=== PATIENT | female | born 1970 | race Caucasian/White ===

== ENCOUNTER 2018-12-09 03:09 | Observation (INO) ==
[2018-12-09] MEDS ORDERED: OXYCODONE Oral CONC 10 MG/0.5 ML ORAL.SYG SL PRN (05:55)
[2018-12-09] MEDS ORDERED: Naloxone 0.4 MG/ML INJ IVP PRN (05:55)
[2018-12-09] MEDS ORDERED: 0.9 % Sodium Chloride 1,000 ML IVC SCH (06:00)
--- NOTE | 2018-12-09 06:00 | Internal Med History&Physical ---
Date of Encounter: 12/09/18 Time of Encounter: 05:40 Internal Medicine - H&P: HPI Chief complaint: Bilateral calcaneal fractures Admitted From: Hospital to Hospital Transfer Plans for Post Hospital Care: Home History of present illness: Ms. Waldron is a 48 year old female Patient presented to the [place] emergency room after falling into her empty indoor inground pool. She states that she went to her pool room looking for her 's leaf blower. The lights were off and upon turning around to leave the room she ended up falling feet first into her pool landing on her heels then falling backwards onto her buttocks. The fall is about 6 feet. She denies hitting her head or losing consciousness. EMS was called and was able to get her out of the pool and transfer her to the emergency room for further evaluation. At the [place] emergency room patient's initial vital signs were within normal limits. CBC, BMP and INR all within normal limits. Imaging: Left and right ankle x-rays: Acute traumatic comminuted mildly displaced fracture of both calcanei Cervical, thoracic, lumbar CT: No acute abnormality Right ankle CT: Highly comminuted calcaneal fracture, intra-articular involving the anterior three fourths of the bone. Fracture plane extends into the sustentaculum. Emergency department gave the patient IV morphine as well as fentanyl, and discussed the case with on-call staffing consultant Dr. Duron. He initially recommended patient be discharged home with a wheelchair and complete non-weightbearing instructions however patient's pain and safety concerns led to a transfer to [facility] for podiatry consultation. Dr. Duron had discussed this outcome with the ER. Upon my evaluation, patient is resting in the hospital bed in mild distress secondary to pain. Her legs are elevated on pillows and bilateral splints have been applied to her feet. She denies chest pain, abdominal pain, nausea, vomiting, diarrhea and constipation. She is a full code. She does not take any medications, denies significant medical history. She has had torn tendons in her right foot requiring surgical correction. Past Med Surg Social Fam HX - Past Medical History Medical history: no medical history Psychiatric history: no psych history - Past Surgical History Surgical History: other (Gastric bypass) Additional surgical history: gastric bypass, right ankle surgery - Social History Smoking Status: Former smoker Smokeless Tobacco Status: No Alcohol use: none Drug use: none - Family History Mother History Unknown: Yes Living Status: Cause of : Kidney failure Hx Family Genitourinary Disorders: Yes (Kidney failure, dialysis patient) Hx Family Endocrine Disorder: Yes (Diabetic) Internal Medicine - H&P: Meds Allergy/AdvReac Type Severity Reaction Status Date / Time Sulfa (Sulfonamide Allergy See Verified 10/07/16 19:54 Antibiotics) Comments All Systems PM: A 10-system review of systems was performed and is negative for pertinent findings except as documented above in the HPI. - Constitutional Vitals: Temp Pulse Resp BP Pulse Ox 99.4 F 66 17 140/77 97 12/09/18 05:15 12/09/18 05:15 12/09/18 05:15 12/09/18 05:15 12/09/18 05:15 General appearance: Present: cooperative, mild distress, A&O X 3, pleasant, answers questions appropriately Exam: - - Head Head exam: Present: normal inspection - Eye Eye exam: Present: EOMI, normal appearance - Respiratory Respiratory exam: Present: CTAB. Absent: rales, respiratory distress, rhonchi, wheezes - Cardiovascular Cardiovascular exam: Present: RRR. Absent: diastolic murmur, systolic murmur - GI/Abdominal GI/Abdominal exam: Present: normal bowel sounds, soft. Absent: tenderness - Extremities Exam Extremities exam: Present: tenderness, warm, radial pulses palpable and symmetrical Additional comments: Bilateral lower extremities in splint dressing, toes warm to touch. - Neurological Exam Neurological exam: Present: no focal deficits, strengths equal and symetr throughout. Absent: motor sensory deficit, facial droop, speech deficit Additional comments: lower extremities difficult to assess due to splints applied to both feet - Skin Skin exam: Present: dry, normal color, warm - Assessment and Plan (1) Bilateral calcaneal fractures Current Visit: No Status: Acute Assessment and plan: Patient sustained bilateral calcaneal fractures after falling into her inground empty pool. Dr. Duron of podiatry notified and will see the patient. Nothing by mouth Pain management as necessary Follow-up podiatry recommendations Qualifiers: Encounter type: initial encounter Fracture type: closed Qualified Code(s): S92.001A - Unspecified fracture of right calcaneus, initial encounter for closed fracture; S92.002A - Unspecified fracture of left calcaneus, initial encounter for closed fracture (2) Low back pain Current Visit: No Status: Acute Assessment and plan: CT of spine negative for abnormalities. Pain management as needed Qualifiers: Chronicity: acute Back pain laterality: bilateral Sciatica presence: without sciatica Qualified Code(s): M54.5 - Low back pain (3) DVT prophylaxis Current Visit: Yes Status: Acute Assessment and plan: SCDs - Time Spent With Patient Total time spent is greater than 50% in coordination of care (as documented) at patient's floor/unit and/or counseling patient: Greater than 35 minutes
[2018-12-09] MEDS: OXYCODONE Oral CONC 10 MG/0.5 ML ORAL.SYG SL PRN ×5 (06:43→23:11)
--- NOTE | 2018-12-09 09:56 | Event Note ---
Date of Encounter: 12/09/18 Time of Encounter: 09:00 went to see patient and she was being wheeled down the hallway for a chest xray. patient will require surgery on the right calcaneal fracture likely tomorrow. Needs to be NPO after midnight.
--- NOTE | 2018-12-09 09:59 | Podiatry Consult Note ---
Date of Encounter: 12/10/18 Time of Encounter: 09:00 Assessment and Plan (1) Closed right calcaneal fracture Current visit: Yes Status: Acute I had a thorough review with the patient regarding her condition/injury, my findings, and recommendations for treatment. We discussed her injury and that her heel bone which she broken fractured into the joint will have arthritis and never be the same as it was prior to the injury with or without surgery. We discussed the CT scan and x-rays which were done. The right side appears worse than the left with loss of calcaneal posterior tuberosity height an intra- articular fracture and is going to be brought to the operating room for surgical intervention after discussing the nature of the procedure, risks versus benefits potential complications consequences of surgery and her condition at length including but not limited to infection bleeding swelling numbness tingling nerve damage wound healing problems painful scar delayed or nonhealing of bone fracture heart attack blood clot pulmonary embolism and loss of leg or partial foot pneumonia arthritis reaction to implants need for implant removal loss of functionality lack of procedure to produce desired outcome walking with a limp need for further surgery etc. Patient was informed that at some point and I cannot predict when but she will need future surgery on the joint which she fractured into and has arthritis of. No guarantees made as to the outcome of any procedure or her future functionality. All of her questions have been answered and the informed consent was signed. Ice and elevation. We discussed the typical course of recovery and she will be nonweightbearing and have to be in a wheelchair due to the calcaneal fractures on both sides. client services administrator should look into rehabilitation facility. She will need to be on DVT prophylaxis following the surgery and while she remains nonweightbearing. Scheduled in OR. Qualifiers: Encounter type: initial encounter Calcaneus location: body Fracture alignment: displaced Qualified Code(s): S92.011A - Displaced fracture of body of right calcaneus, initial encounter for closed fracture History of Present Illness HPI: Ms. Waldron is a 48 year old female who presented to the [facility] emergency room after falling into her empty inground pool. She states that she went to her pool room looking for her 's leaf blower. The lights were off and upon turning around to leave the room she ended up falling feet first into her pool landing on her heels then falling backwards. The fall is about 6 feet. She denies hitting her head or losing consciousness. EMS was called and was able to get her out of the pool and transfer her to the emergency room for further evaluation. Past Med Surg Social Fam HX - Past Medical History Medical history: no medical history Psychiatric history: no psych history - Past Surgical History Surgical History: other (Gastric bypass) Additional surgical history: gastric bypass, right ankle surgery - Social History Smoking Status: Former smoker Smokeless Tobacco Status: No Alcohol use: none Drug use: none - Family History Mother History Unknown: Yes Living Status: Cause of : Kidney failure Hx Family Genitourinary Disorders: Yes (Kidney failure, dialysis patient) Hx Family Endocrine Disorder: Yes (Diabetic) Medications and Allergies RX: No Known Home Drugs 12/09/18 [History] Allergy/AdvReac Type Severity Reaction Status Date / Time Sulfa (Sulfonamide Allergy See Verified 12/09/18 16:52 Antibiotics) Comments All Systems Reviewed: The remainder of the systems were reviewed and are negative Physical Exam - Constitutional Vitals: Temp Pulse Resp BP Pulse Ox 99.3 F 61 17 120/72 95 12/09/18 07:40 12/09/18 07:40 12/09/18 07:40 12/09/18 07:40 12/09/18 07:40 General appearance: no acute distress - Ankle & Foot Exam: Well-developed and nourished female in no acute distress Pain with palpation bilateral calcaneus. Unable to perform further examination due to pain. Patient does have some ecchymosis. No fracture blisters. Skin lines are evident. Sensation intact to touch her toes. Patient can flex and extend digits of bilateral feet. Results - Labs Result Diagrams: 12/10/18 01:26 12/10/18 01:26 Labs: All other labs normal. Consult Discharge Plan - Plan Referrals: Sho Phillips, PLANOGRAMMER [Primary Care Provider] -
[2018-12-09] MEDS: Ondansetron 4 MG/2 ML VIAL IVP PRN ×2 (10:20→18:50)
[2018-12-09] MEDS: 0.9 % Sodium Chloride 1,000 ML IVC SCH ×2 (10:21→18:54)
[2018-12-09 15:55] LABS: Bilirubin,Urine Negative (Negative); Blood,Urine Moderate (Negative); Clarity,Urine Clear (Clear); Color,Urine Yellow (Yellow); Glucose,Urine (UA) Normal (Normal); Ketones,Urine Negative (Negative); Leukocyte Esterase,Urine Moderate (Negative); Nitrite,Urine Positive (Negative); Protein,Urine Negative (Neg-Trace); Specific Gravity,Urine >= 1.030 (1.010-1.025); Urobilinogen,Urine Normal (Normal)
[2018-12-09 16:14] LABS: Bacteria,Urine Many per hpf (None-Few); Hyaline Casts,Urine Few per lpf (None-Few); Squamous Epithelial Cell,Urine Many per lpf (None-Few); WBC,Urine TNTC per hpf (0-3)
--- NOTE | 2018-12-09 16:20 | Event Note ---
Date of Encounter: 12/09/18 Time of Encounter: 14:16 Patient was seen and examined. Reviewed the note. Patient is is nothing by mouth for possible fracture repair today. Orthopedic surgeon on board. Continue pain management. DVT prophylaxis with subcutaneous heparin. Preop lab and chest x-ray ordered. Will consult PT OT and social welfare clerk.
[2018-12-09] MEDS: *HR* Heparin 5,000 UNIT/ML VIAL SQ SCH (23:11)
[2018-12-10] MEDS: Ondansetron 4 MG/2 ML VIAL IVP PRN (00:36)
[2018-12-10 01:55] LABS: Basophils % 0.3 %; Eosinophils # 0.1 K/mcL (0.0-0.6); Eosinophils % 1.7 %; Hematocrit 33.5 % (35.3-44.9); Hemoglobin 10.5 g/dL (11.5-15.4); Immature Granulocytes % 0.1 % (0-4); Lymphocytes # 1.2 K/mcL (0.6-4.6); Lymphocytes % 17.8 %; Mean Corpuscular HGB Conc 31.3 g/dL (31.6-35.5); Mean Corpuscular Hemoglobin 26.9 pg (28.0-33.3); Mean Corpuscular Volume 85.9 fL (83.0-100.0); Mean Platelet Volume 11.4 fL (9.4-12.4); Monocytes # 0.7 K/mcL (0.0-1.3); Monocytes % 10.2 %; Neutrophils # 4.8 K/mcL (1.6-8.9); Platelet Count 157 K/mcL (140-400); Red Cell Distribution Width 13.1 % (11.5-14.5); Segmented Neutrophils % 69.9 %; White Blood Count 6.9 K/mcL (4.3-11.1)
[2018-12-10 02:14] LABS: Blood Urea Nitrogen 10 mg/dL (6-20); Calcium 8.6 mg/dL (8.6-10.3); Carbon Dioxide 26 mEq/L (23-29); Chloride 106 mEq/L (98-107); Glucose 111 mg/dL (70-105); Osmolality,Calculated 288 (280-300); Sodium 139 mEq/L (136-145)
[2018-12-10 02:17] LABS: BUN/Creatinine Ratio 14 (6-26); eGFR For African Americans > 60 (> 60); eGFR For Non-African Americans > 60 (> 60)
[2018-12-10] MEDS: OXYCODONE Oral CONC 10 MG/0.5 ML ORAL.SYG SL PRN ×3 (05:56→21:32)
[2018-12-10] MEDS: *HR* Heparin 5,000 UNIT/ML VIAL SQ SCH ×3 (06:32→21:31)
--- NOTE | 2018-12-10 07:09 | Electrocardiograph Report ---
[place] [facility] Test Date: 2018-12-09 Pat Name: Tiarra Waldron Department: [id number] Room: [facility] Gender: F Adapted Physical Education Aide: : 1970 Requested By: Teddy Cheng Order Number: [id number] Reading MD: Alberto Houser Measurements Intervals [place] Rate: 61 P: 47 MT: 129 QRS: 19 QRSD: 95 T: 19 QT: 429 QTc: 433 Interpretive Statements sinus rhythm TU waves Electronically Signed On 12-10-2018 7:08:13 EDT by Alberto Houser
[2018-12-10] MEDS ORDERED: *HR* Promethazine 25 MG/ML VIAL IVP PRN (09:11)
[2018-12-10] MEDS ORDERED: 0.9 % Sodium Chloride 1,000 ML IVC SCH (09:15)
[2018-12-10] MEDS ORDERED: Pantoprazole 40 MG VIAL IVP SCH (09:15)
[2018-12-10] MEDS ORDERED: *HR* Midazolam HCl 2 MG/2 ML VIAL ONE (10:08)
[2018-12-10] MEDS ORDERED: *HR* Propofol 200 MG/20 ML VIAL IVP ONE (10:08)
[2018-12-10] MEDS ORDERED: *HR* FentaNYL (PF) 100 MCG/2 ML VIAL ONE (10:08)
[2018-12-10] MEDS ORDERED: Dexamethasone 4 MG/ML VIAL ONE (10:09)
[2018-12-10] MEDS ORDERED: Lidocaine -MPF 2% 2 ML VIAL ONE ×2 (10:09→14:28)
[2018-12-10] MEDS ORDERED: Ondansetron 4 MG/2 ML VIAL ONE (10:09)
--- NOTE | 2018-12-10 11:19 | Anesthesia Evaluation PreOp ---
Date of Encounter: 12/10/18 Time of Encounter: 11:16 - Past History Planned Operation: ORIF right calcaneal fx Cardiac History: Denies any Significant Hx Pulmonary History: Denies Any Significant HX, Former smoker TAIL END RIDER History: Denies Any Significant HX Other Medical History: Denies Any Significant HX Anesthesia History: No Prior Anesthetic Complications, Past Anesthesia (gastric bypass, right ankle, christy) Alcohol Use: none Drug use: none Medications and Allergies No Known Home Drugs 12/09/18 [History] Allergy/AdvReac Type Severity Reaction Status Date / Time Sulfa (Sulfonamide Allergy See Verified 12/09/18 16:52 Antibiotics) Comments - Meds/Allergy Pre-op Review Medications Reviewed: Yes Allergies Reviewed: Yes Beta Blockers on Current Med List: No Anesthesia Results - Labs 12/10/18 01:26 12/10/18 01:26 - Imaging EKG: report reviewed (sinus rhythm TU waves) Anesthesia Exam Selected Entries 12/10/18 07:30 Temperature 98.6 F Pulse Rate 72 Respiratory Rate 18 Blood Pressure 129/78 O2 Sat by Pulse Oximetry 93 Oxygen Delivery Method Room Air Weight: 93kg NPO (# of Hours): 8 - HEENT Pupil (Motor): EOMI Mallampati: III Teeth: Missing, Poor dentition Oral Opening: Less than or equal to 3 - TAIL END RIDER LOC: Oriented TAIL END RIDER Motor: Normal RUE, Normal LUE, Normal RLE, Normal LLE, Normal Face TAIL END RIDER Sensory: Normal: RUE, LUE, RLE, LLE, Face - Cardiac Rhythm: Regular Murmur: None - Pulmonary Breath Sounds: bilateral Clear Respiratory Effort: Symmetrical Anesthesia Assess/Plan ASA Score: 2 Level of consciousness: Cooperative, Oriented Anesthetic Plan: General, Regional Nerve Block Monitoring Plan: Standard Monitors Recovery Plan: PACU (agrees to GA and nerve block)
[2018-12-10] MEDS ORDERED: ROPIVACAINE HCL/PF 0.5% 30 ML VIAL ONE (11:40)
--- NOTE | 2018-12-10 11:44 | Operative Note ---
Date of procedure: 12/10/18 Pre-op diagnosis: right displaced intra-articular calcaneal fracture Post-op diagnosis: same Procedure: ORIF right calcaneal fracture Implants: paragon 28 calcaneal fracture plate and screws Complications: none Anesthesia: GETA Local Anesthetics: 1% Lidocaine HCL SubQ (cc), Other (popliteal block by anesthesia) Surgeon: Jovanni Vega Was there an assistant auditor present: No Estimated blood loss (cc): 15 Specimen: none Condition: stable Disposition: PACU Procedure in Detail: Indications: 48-year-old female fall from height sustaining bilateral calcaneal fractures and undergoing ORIF of the right calcaneal displaced intra-articular fracture. Nature of the procedure, risks versus benefits potential complications consequences of surgery and her condition discussed at length. Patient understands she will have arthritis of this joint and require surgery in the future at some point. Patient had a decreased Bohler's angle and increased angle of guissane. All of her questions have been answered informed consent was signed patient was taken from the preoperative holding area into the operating room and placed on the operating room table in the lateral position. High calf tourniquet applied and inflated to 250mm Hg. ORIF right calcaneal fracture. Attention was directed to the patients right lateral foot and a #15 blade was used to make an incision from the distal tip of the fibula extending across the sinus tarsi. Skin incision was deepened through blunt dissection care was taken to avoid all neurovascular tendinous structures. All traversing veins were divided ligated with the bovie. The peroneal tendons were identified and retracted. The gates and freer elevator were used to free the periosteum from the lateral wall of the calcaneus. Lateral wall blowout was noted with multiple chunks of bone along the course of the peroneal tendons. The small chunks were removed and lateral wall of the calcaneus reduced. The posterior facet was visualized with fracture extending intra-articular dividing the posterior facet and the lateral fragment was depressed and angulated. A Eastham 28 4 mm half pin was thrown from lateral to medial across the calcaneal tuber and was used to distract and rotate the calcaneus into neurtral alignment as noted on the calcaneal axial fluoroscopy view. Using a combination of the osteotome and freer elevator the posterior facet was reduced to the sustentaculum stacey. Visually the posterior facet was noted to be reduced and this fragment was pinned to the sustentaculum stacey temporarily and next with the heel distract and rotated out of varus and the calcaneus was pinned from posterior to anterior visually looking at the heel. Clinically the heel was not in varus. Next a paragon 28 locking plate with locking screws was applied to the lateral aspect of the calcaneus using standard technique. After the calcaneal fracture was well fixated from posterior to anterior. Cancellous bone chips were used to fill the void under the posterior facet. The plate was in good position and alignment providing support to the posterior facet fragment and bridging the fracture zones in the calcaneus. The patient had a restored bohlers angle and angle of guissane on immediate post-operative xrays. The site was flushed with normal sterile saline. The peroneal sheath was repaired with 2-0 vicryl. Deep and subcutaneous tissues were reapproximated using 2-0 vicryl and skin reapproximated using nickie. The peroneal tendons did not appear to impingment on the plate laterally or from the lateral wall blow out. Post-opertive bandage included xeroform, 4x4 gauze, abdominal pad, kerlix and an adequately padded posterior splint secured with JANESSA wraps. The patient tolerated the anesthesia and the procedure well and was escorted to the recovery room with vital signs stable and vascular status intact to the right foot noted by instant capillary refill time to all digits of the right foot. Ice and elevation. Strict non-weight bearing discussed with the patient.
--- NOTE | 2018-12-10 13:10 | Internal Med Progress Note ---
Hospitalist Progress Note - Encounter Date of Encounter: 12/10/18 Time of Encounter: 09:10 - Subjective Interval History: Acute event overnight. Pain is adequately controlled. Complained of nausea. Review the lab Patient denies fever chills vomiting or headache dizziness chest pain cough shortness of breath abdominal pain urinary complaint diarrhea. - Exam Vitals: Temp Pulse Resp BP Pulse Ox 98.5 F 59 19 134/85 100 12/10/18 11:39 12/10/18 13:06 12/10/18 11:39 12/10/18 13:06 12/10/18 13:06 Exam: -General appearance: No acute distress, A&O X 3 Head exam: Atraumatic Eye exam: EOMI, PERRLA ENT exam: Moist oral mucosa Neck nontender, supple Respiratory exam: Clear to auscultation bilaterally Cardiovascular exam: Regular rate and rhythm, no systolic murmur Abdominal exam: Soft, nontender, nondistended, positive bowel sounds Extremities exam: No calf tenderness, no pedal edema Present: Bilateral feet with the splint-difficult to examine. Toes- intact sensation and movement Skin-no rash, warm, dry, intact Neurological exam: Alert, awake, oriented 3, CN II-XII intact, no focal deficits. No facial droop. Normal speech. - Assessment and Plan (1) Bilateral calcaneal fractures Current Visit: No Status: Acute Assessment and Plan: Patient sustained bilateral calcaneal fractures after falling into her inground empty pool. Dr. Duron plan for surgery today. Continue keep patient nothing by mouth, IV fluids 75 mL per hour normal saline, pain management, DVT prophylaxis.. (2) Low back pain Current Visit: No Status: Acute Assessment and Plan: CT of spine negative for abnormalities. Pain management as needed (3) DVT prophylaxis Current Visit: Yes Status: Acute Assessment and Plan: SCDs (4) Abnormal urinalysis Current Visit: Yes Status: Acute Assessment and Plan: Patient denies urinary complaint with no fever normal white count. Urine culture with no growth yet. Continue to monitor. - Time Spent with Patient Total time spent is greater than 50% in coordination of care (as documented) at patient's floor/unit and/or counseling patient: 25 - 35 minutes Plan of Care Discussed with: patient Internal Medicine: Result - Labs CBC & Chem 7: 12/10/18 01:26 12/10/18 01:26 Labs: Short CBC 12/10/18 Range/Units 01:26 WBC 6.9 (4.3-11.1) K/mcL Hgb 10.5 L (11.5-15.4) g/dL Hct 33.5 L (35.3-44.9) % Plt Count 157 (140-400) K/mcL Neutrophils # 4.8 (1.6-8.9) K/mcL BMP 12/10/18 01:26 Sodium 139 Potassium 4.0 Chloride 106 Carbon Dioxide 26 BUN 10 Creatinine 0.72 Glucose 111 H Calcium 8.6 Urine 12/09/18 Range/Units 15:40 Urine Color Yellow (Yellow) Urine Clarity Clear (Clear) Urine pH 6.0 (5.0-8.0) pH Units Ur Specific [place] >= 1.030 H (1.010-1.025) Urine Protein Negative (Neg-Trace) mg/dL Urine Glucose (UA) Normal (Normal) mg/dL Consult Discharge Plan - Plan Referrals: Sho Phillips CNP [Primary Care Provider] - (1) Bilateral calcaneal fractures Qualifiers: Encounter type: initial encounter Fracture type: closed Qualified Code(s): S92.001A - Unspecified fracture of right calcaneus, initial encounter for closed fracture; S92.002A - Unspecified fracture of left calcaneus, initial encounter for closed fracture (2) Low back pain Qualifiers: Chronicity: acute Back pain laterality: bilateral Sciatica presence: without sciatica Qualified Code(s): M54.5 - Low back pain
[2018-12-10] MEDS ORDERED: Lidocaine -MPF 4% 5 ML AMPUL ONE (13:16)
[2018-12-10] MEDS ORDERED: Bupivacaine/EPI 1:200k 0.25%PF 30 ML VIAL ONE (14:04)
[2018-12-10] MEDS ORDERED: *HR* PHENYLEPHRINE 1,000 MCG/10 ML SYRINGE IVP ONE (14:16)
--- NOTE | 2018-12-10 16:54 | Anesthesia Evaluation Post Op ---
Date of Encounter: 12/10/18 Time of Encounter: 16:54 - Vital Signs Vital Signs: Vital Signs/O2 Sat, Most Current Temp Pulse Resp BP Pulse Ox 98.0 F 85 16 133/78 100 12/10/18 16:24 12/10/18 16:44 12/10/18 16:44 12/10/18 16:44 12/10/18 16:44 - Lungs Lungs: Clear Ascult./Percussion - Airway Airway: Non-obstructed - Cardiovascular Regular Rate - Mental Status Mental Status: Alert & Oriented, Answers Appropriately - Pain Pain Scale: 0 - Nausea Vomiting Nausea Vomiting: Not Present - Hydration Hydration: Ice chips, Norman catheter - Discharge PostOp Status: Transfer Patient to floor
[2018-12-10] MEDS ORDERED: Ondansetron 4 MG/2 ML VIAL IVP PRN (16:57)
[2018-12-10] MEDS ORDERED: OXYCODONE Oral CONC 10 MG/0.5 ML ORAL.SYG SL PRN (16:57)
[2018-12-10] MEDS ORDERED: Naloxone 0.4 MG/ML INJ IVP PRN (16:57)
[2018-12-10] MEDS: 0.9 % Sodium Chloride 1,000 ML IVC SCH (21:33)
[2018-12-10] MEDS: *HR* Promethazine 25 MG/ML VIAL IVP PRN (22:30)
[2018-12-11] MEDS ORDERED: ceFAZolin 2,000 MG in Water for inj. (sterile) 20 ML IVP SCH
[2018-12-11] MEDS: OXYCODONE Oral CONC 10 MG/0.5 ML ORAL.SYG SL PRN ×5 (04:08→22:38)
[2018-12-11 04:54] LABS: Basophils % 0.1 %; Eosinophils % 0.1 %; Hematocrit 32.6 % (35.3-44.9); Hemoglobin 10.6 g/dL (11.5-15.4); Immature Granulocytes % 0.4 % (0-4); Lymphocytes % 8.7 %; Mean Corpuscular HGB Conc 32.5 g/dL (31.6-35.5); Mean Corpuscular Hemoglobin 27.6 pg (28.0-33.3); Mean Corpuscular Volume 84.9 fL (83.0-100.0); Mean Platelet Volume 10.6 fL (9.4-12.4); Monocytes # 0.8 K/mcL (0.0-1.3); Monocytes % 7.5 %; Platelet Count 165 K/mcL (140-400); Red Blood Count 3.84 M/mcL (3.82-4.97); Red Cell Distribution Width 12.8 % (11.5-14.5); Segmented Neutrophils % 83.2 %
[2018-12-11 04:56] LABS: Neutrophils # 9.2 K/mcL (1.6-8.9); White Blood Count 11.1 K/mcL (4.3-11.1)
[2018-12-11 05:11] LABS: BUN/Creatinine Ratio 17 (6-26); Blood Urea Nitrogen 13 mg/dL (6-20); Calcium 8.5 mg/dL (8.6-10.3); Carbon Dioxide 26 mEq/L (23-29); Chloride 103 mEq/L (98-107); Glucose 136 mg/dL (70-105); Osmolality,Calculated 288 (280-300); Potassium 4.1 mEq/L (3.5-5.1); Sodium 138 mEq/L (136-145); eGFR For African Americans > 60 (> 60); eGFR For Non-African Americans > 60 (> 60)
[2018-12-11] MEDS: *HR* Heparin 5,000 UNIT/ML VIAL SQ SCH ×3 (06:01→21:14)
[2018-12-11] MEDS: 0.9 % Sodium Chloride 1,000 ML IVC SCH ×2 (06:01→17:46)
--- NOTE | 2018-12-11 08:21 | Podiatry Progress Note ---
Date of Encounter: 12/11/18 Time of Encounter: 07:30 - Assessment and Plan (1) Closed right calcaneal fracture Current Visit: Yes Status: Acute reviewed with patient surgical procedure and course of recovery. remain non- weight bearing b/l in posterior splints. ECF eval. DVT ppx. f/u week after d/c. Qualifiers: Encounter type: initial encounter Calcaneus location: body Fracture alig nment: displaced Qualified Code(s): S92.011A - Displaced fracture of body of right calcaneus, initial encounter for closed fracture Subjective Interval history: s/p right calcaneal ORIF. denies feeling sob/cp/fever/chills. no overnight events. patient resting comfortably when I came in the room. She says the block is starting to wear off and she took some pain medication. Objective - Vital Signs Vital Signs: Vital Signs Temp Pulse Resp BP Pulse Ox 12/11/18 06:54 98.5 F 72 16 108/64 94 12/11/18 04:00 99.3 F 65 17 110/72 95 12/10/18 23:16 99.7 F H 68 18 105/68 94 12/10/18 19:21 98.4 F 66 18 127/73 100 12/10/18 18:00 97.9 F 69 18 148/83 100 12/10/18 17:23 97.6 F 64 16 132/83 100 12/10/18 16:54 99.1 F 79 16 140/84 100 12/10/18 16:44 85 16 133/78 100 12/10/18 16:34 89 16 118/74 100 12/10/18 16:24 98.0 F 97 16 106/80 99 12/10/18 13:17 60 134/85 100 12/10/18 13:06 59 134/85 100 12/10/18 12:49 58 124/86 100 12/10/18 12:34 57 149/80 99 12/10/18 12:16 63 126/81 98 12/10/18 11:59 62 114/67 98 12/10/18 11:39 98.5 F 67 19 147/91 95 12/10/18 11:30 65 145/91 100 Intake and Output 12/10/18 12/11/18 12/11/18 23:59 07:59 15:59 Output Total 1365 / 1815 300 / 300 Balance -1365 / -815 -300 / -300 Output: Estimated Blood Loss Urine Amount (Catheter) 700 / 700 Catheter 650 / 650 300 / 300 - Exam Exam: well developed and nourished female in no acute distress CFT intact to digits of the right foot. right foot is warm to touch. no pain with calf squeeze b/l. posterior splint clean, dry and intact. can flex and extend digits of the right and left feet. - Lab Result Diagrams: 12/11/18 04:40 12/11/18 04:40 Labs: Abnormal lab results Hgb 10.6 g/dL (11.5-15.4) L 12/11/18 04:40 Hct 32.6 % (35.3-44.9) L 12/11/18 04:40 MCH 27.6 pg (28.0-33.3) L 12/11/18 04:40 MCHC 31.3 g/dL (31.6-35.5) L 12/10/18 01:26 9.2 K/mcL (1.6-8.9) H 12/11/18 04:40 Glucose 136 mg/dL (70-105) H 12/11/18 04:40 Calcium 8.5 mg/dL (8.6-10.3) L 12/11/18 04:40 Ur Specific [place] >= 1.030 (1.010-1.025) H 12/09/18 15:40 Moderate (Negative) H 12/09/18 15:40 Positive (Negative) A 12/09/18 15:40 Ur Leukocyte Esterase Moderate (Negative) H 12/09/18 15:40 5-15 per hpf (0-3) H 12/09/18 15:40 TNTC per hpf (0-3) H 12/09/18 15:40 Ur Squamous Epith Cells Many per lpf (None-Few) H 12/09/18 15:40 Many per hpf (None-Few) H 12/09/18 15:40 Ur Culture Indicated? YES (NO) A 12/09/18 15:40 Microbiology, Last 48 Hours 12/09/18 15:40 Urine Culture - Preliminary Urine,Clean Catch Gram Negative Marco Consult Discharge Plan - Plan Referrals: Sho Phillips CNP [Primary Care Provider] -
[2018-12-11] MEDS: cefTRIAXone 1,000 MG in Water for inj. (sterile) 20 ML 20 ML IVP SCH (09:06)
[2018-12-11] MEDS: Pantoprazole 40 MG VIAL IVP SCH (09:06)
--- NOTE | 2018-12-11 11:06 | Internal Med Progress Note ---
Hospitalist Progress Note - Encounter Date of Encounter: 12/11/18 Time of Encounter: 11:06 - Subjective Interval History: No acute event overnight. Complaint of pain is effect of block wearing down. Reviewed lab. Review vitals . Urine culture with Escherichia coli Patient denies fever chills nausea vomiting headache dizziness chest pain shortness of breath diarrhea - Exam Vitals: Temp Pulse Resp BP Pulse Ox 98.5 F 72 16 108/64 94 12/11/18 06:54 12/11/18 06:54 12/11/18 06:54 12/11/18 06:54 12/11/18 06:54 Exam: -General appearance: No acute distress, A&O X 3 with sitting on chair Head exam: Atraumatic Eye exam: EOMI, PERRLA ENT exam: Moist oral mucosa Neck nontender, supple Respiratory exam: Clear to auscultation bilaterally Cardiovascular exam: Regular rate and rhythm, no systolic murmur Abdominal exam: Soft, nontender, nondistended, positive bowel sounds Extremities exam: No calf tenderness, no pedal edema Present: Bilateral feet - dressing. Toes- intact sensation and movement Skin-no rash, warm, dry, intact Neurological exam: Alert, awake, oriented 3, CN II-XII intact, no focal deficits. No facial droop. Normal speech. - Assessment and Plan (1) Bilateral calcaneal fractures Current Visit: No Status: Acute Assessment and Plan: Postop day 1 .s/p right calcaneal ORIF. Patient sustained bilateral calcaneal fractures after falling into her inground empty pool. Postoperative pain management. Increase oxycodone dose for better pain control. Tylenol when necessary. Will remove Norman catheter today. Tolerating oral diet. PT OT on board. rubber and plastics worker for discharge plan and placement. DVT prophylaxis Non-weight bearing (2) Low back pain Current Visit: No Status: Acute Assessment and Plan: CT of spine negative for abnormalities. Pain management as needed (3) UTI (urinary tract infection) Current Visit: Yes Status: Acute Assessment and Plan: Urine culture positive with Escherichia coli. Continue Rocephin for now. Normal white count. Patient had low grade fever last night. (4) DVT prophylaxis Current Visit: Yes Status: Acute Assessment and Plan: Heparin subcutaneous. - Time Spent with Patient Total time spent is greater than 50% in coordination of care (as documented) at patient's floor/unit and/or counseling patient: 25 - 35 minutes Plan of Care Discussed with: patient Internal Medicine: Result - Labs CBC & Chem 7: 12/11/18 04:40 12/11/18 04:40 Labs: Short CBC 12/11/18 Range/Units 04:40 WBC 11.1 D (4.3-11.1) K/mcL Hgb 10.6 L (11.5-15.4) g/dL Hct 32.6 L (35.3-44.9) % Plt Count 165 (140-400) K/mcL Neutrophils # 9.2 H (1.6-8.9) K/mcL BMP 12/11/18 04:40 Sodium 138 Potassium 4.1 Chloride 103 Carbon Dioxide 26 BUN 13 Creatinine 0.77 Glucose 136 H Calcium 8.5 L - Impressions Impressions Fluoroscopy 12/10/18 14:04 IMPRESSION: Intraprocedural fluoroscopic spot images as above. See separate procedure report for more information. D/ : / 12/10/2018 16:09:30 uLisana Romero MD / kathy Interpreting Provider: Luisana Romero MD Foot X-Ray 12/10/18 14:04 IMPRESSION: Intraprocedural fluoroscopic spot images as above. See separate procedure report for more information. D/ / 12/10/2018 16:09:30 Luisana Romero MD / kathy Interpreting Provider: Luisana Romero MD Consult Discharge Plan - Plan Referrals: Sho Phillips CNP [Primary Care Provider] - (1) Bilateral calcaneal fractures Qualifiers: Encounter type: initial encounter Fracture type: closed Qualified Code(s): S92.001A - Unspecified fracture of right calcaneus, initial encounter for closed fracture; S92.002A - Unspecified fracture of left calcaneus, initial encounter for closed fracture (2) Low back pain Qualifiers: Chronicity: acute Back pain laterality: bilateral Sciatica presence: without sciatica Qualified Code(s): M54.5 - Low back pain (3) UTI (urinary tract infection) Qualifiers: Urinary tract infection type: acute cystitis Hematuria presence: with hematuria Qualified Code(s): N30.01 - Acute cystitis with hematuria
[2018-12-11] MEDS: *HR* Promethazine 25 MG/ML VIAL IVP PRN ×2 (12:35→21:14)
[2018-12-12] MEDS: OXYCODONE Oral CONC 10 MG/0.5 ML ORAL.SYG SL PRN ×4 (02:41→21:40)
[2018-12-12 05:07] LABS: Basophils % 0.7 %; Eosinophils # 0.1 K/mcL (0.0-0.6); Eosinophils % 1.8 %; Hematocrit 28.6 % (35.3-44.9); Hemoglobin 9.1 g/dL (11.5-15.4); Immature Granulocytes % 0.3 % (0-4); Lymphocytes % 32.9 %; Mean Corpuscular HGB Conc 31.8 g/dL (31.6-35.5); Mean Corpuscular Hemoglobin 27.2 pg (28.0-33.3); Mean Corpuscular Volume 85.4 fL (83.0-100.0); Mean Platelet Volume 10.8 fL (9.4-12.4); Monocytes # 0.5 K/mcL (0.0-1.3); Monocytes % 8.8 %; Neutrophils # 3.3 K/mcL (1.6-8.9); Platelet Count 146 K/mcL (140-400); Red Blood Count 3.35 M/mcL (3.82-4.97); Red Cell Distribution Width 13.1 % (11.5-14.5); Segmented Neutrophils % 55.5 %
[2018-12-12 05:27] LABS: BUN/Creatinine Ratio 19 (6-26); Blood Urea Nitrogen 12 mg/dL (6-20); Calcium 8.1 mg/dL (8.6-10.3); Carbon Dioxide 28 mEq/L (23-29); Chloride 103 mEq/L (98-107); Glucose 93 mg/dL (70-105); Osmolality,Calculated 289 (280-300); Potassium 3.7 mEq/L (3.5-5.1); Sodium 140 mEq/L (136-145); eGFR For African Americans > 60 (> 60); eGFR For Non-African Americans > 60 (> 60)
[2018-12-12] MEDS: *HR* Heparin 5,000 UNIT/ML VIAL SQ SCH ×3 (06:18→21:40)
[2018-12-12] MEDS: cefTRIAXone 1,000 MG in Water for inj. (sterile) 20 ML 20 ML IVP SCH (07:40)
[2018-12-12] MEDS: 0.9 % Sodium Chloride 1,000 ML IVC SCH (07:40)
[2018-12-12] MEDS: Pantoprazole 40 MG VIAL IVP SCH (07:41)
[2018-12-12] MEDS: *HR* Promethazine 25 MG/ML VIAL IVP PRN ×3 (07:41→21:39)
[2018-12-12] MEDS ORDERED: Acetaminophen 325 MG TABLET PO PRN (08:09)
--- NOTE | 2018-12-12 11:48 | Internal Med Progress Note ---
Hospitalist Progress Note - Encounter Date of Encounter: 12/12/18 Time of Encounter: 12:07 - Subjective Interval History: No acute event overnight. Had low-grade fever yesterday. Pain is better controlled after increasing pain medication dose. Review the lab and vitals. Patient denies chills nausea vomiting headache dizziness chest pain shortness of breath diarrhea. - Exam Vitals: Temp Pulse Resp BP Pulse Ox 98.4 F 64 15 120/81 96 12/12/18 07:02 12/12/18 07:02 12/12/18 07:02 12/12/18 07:02 12/12/18 07:02 Exam: -General appearance: No acute distress, A&O X 3 Eye exam: EOMI, PERRLA ENT exam: Moist oral mucosa Neck nontender, supple Respiratory exam: Clear to auscultation bilaterally Cardiovascular exam: Regular rate and rhythm, no systolic murmur Abdominal exam: Soft, nontender, nondistended, positive bowel sounds Extremities exam: No calf tenderness, no pedal edema Present: Bilateral feet - dressing. Toes- intact sensation and movement Skin-no rash, warm, dry, intact Neurological exam: Alert, awake, oriented 3, CN II-XII intact, no focal deficits. No facial droop. Normal speech. - Assessment and Plan (1) Bilateral calcaneal fractures Current Visit: No Status: Acute Assessment and Plan: Postop day 2 .s/p right calcaneal ORIF. Patient sustained bilateral calcaneal fractures after falling into her inground empty pool. Postoperative pain management. Increased oxycodone dose for better pain control. Tylenol when necessary. Tolerating oral diet. PT OT on board. garnett room worker for discharge plan and placement. DVT prophylaxis Non-weight bearing Possible discharge tomorrow (2) Low back pain Current Visit: No Status: Acute Assessment and Plan: CT of spine negative for abnormalities. Pain management as needed (3) UTI (urinary tract infection) Current Visit: Yes Status: Acute Assessment and Plan: Urine culture positive with Escherichia coli. Continue Rocephin for now. Normal white count. Patient had low grade fever last night. (4) DVT prophylaxis Current Visit: Yes Status: Acute Assessment and Plan: Heparin subcutaneous. - Time Spent with Patient Total time spent is greater than 50% in coordination of care (as documented) at patient's floor/unit and/or counseling patient: 25 - 35 minutes Plan of Care Discussed with: patient Internal Medicine: Result - Labs CBC & Chem 7: 12/12/18 04:54 12/12/18 04:54 Labs: Short CBC 12/12/18 Range/Units 04:54 WBC 6.0 (4.3-11.1) K/mcL Hgb 9.1 L D (11.5-15.4) g/dL Hct 28.6 L (35.3-44.9) % Plt Count 146 (140-400) K/mcL Neutrophils # 3.3 (1.6-8.9) K/mcL BMP 12/12/18 04:54 Sodium 140 Potassium 3.7 Chloride 103 Carbon Dioxide 28 BUN 12 Creatinine 0.64 Glucose 93 Calcium 8.1 L Consult Discharge Plan - Plan Referrals: Sho Phillips CNP [Primary Care Provider] - (1) Bilateral calcaneal fractures Qualifiers: Encounter type: initial encounter Fracture type: closed Qualified Code(s): S92.001A - Unspecified fracture of right calcaneus, initial encounter for closed fracture; S92.002A - Unspecified fracture of left calcaneus, initial encounter for closed fracture (2) Low back pain Qualifiers: Chronicity: acute Back pain laterality: bilateral Sciatica presence: without sciatica Qualified Code(s): M54.5 - Low back pain (3) UTI (urinary tract infection) Qualifiers: Urinary tract infection type: acute cystitis Hematuria presence: with hematuria Qualified Code(s): N30.01 - Acute cystitis with hematuria
[2018-12-13] MEDS: *HR* Promethazine 25 MG/ML VIAL IVP PRN ×3 (03:28→22:13)
[2018-12-13] MEDS: OXYCODONE Oral CONC 10 MG/0.5 ML ORAL.SYG SL PRN ×5 (03:28→22:12)
[2018-12-13 04:51] LABS: Basophils % 0.7 %; Eosinophils # 0.2 K/mcL (0.0-0.6); Eosinophils % 3.5 %; Hematocrit 29.5 % (35.3-44.9); Hemoglobin 9.5 g/dL (11.5-15.4); Immature Granulocytes % 0.2 % (0-4); Lymphocytes # 1.9 K/mcL (0.6-4.6); Lymphocytes % 32.1 %; Mean Corpuscular HGB Conc 32.2 g/dL (31.6-35.5); Mean Corpuscular Hemoglobin 27.1 pg (28.0-33.3); Mean Platelet Volume 10.4 fL (9.4-12.4); Monocytes # 0.5 K/mcL (0.0-1.3); Monocytes % 7.7 %; Neutrophils # 3.3 K/mcL (1.6-8.9); Platelet Count 180 K/mcL (140-400); Red Blood Count 3.51 M/mcL (3.82-4.97); Red Cell Distribution Width 12.9 % (11.5-14.5); Segmented Neutrophils % 55.8 %
[2018-12-13] MEDS: *HR* Heparin 5,000 UNIT/ML VIAL SQ SCH (06:05)
[2018-12-13] MEDS ORDERED: *HR* Rivaroxaban 10 MG TABLET PO SCH ×2 (09:00→17:00)
[2018-12-13] MEDS: cefTRIAXone 1,000 MG in Water for inj. (sterile) 20 ML 20 ML IVP SCH (10:13)
[2018-12-13] MEDS: Pantoprazole 40 MG VIAL IVP SCH (10:14)
--- NOTE | 2018-12-13 14:33 | Internal Med Progress Note ---
Hospitalist Progress Note - Encounter Date of Encounter: 12/13/18 Time of Encounter: 14:31 - Subjective Interval History: Still having pain and says pain meds not lasting the whole 4 hours. Otherwise no complaints, mild nausea but no vomiting, no leg swelling, no CP or SOB, no diarrhea. - Exam Vitals: Temp Pulse Resp BP Pulse Ox 98.8 F 68 16 119/76 95 12/13/18 11:06 12/13/18 11:06 12/13/18 11:06 12/13/18 11:12/13/18 11:06 Exam: General: NAD, good eye contact, well appearing Thoracic: Normal breath sounds b/l, no wheezing or crackles Cardio: Normal S1 and S2, regular rate and rhythm Abdomen: Soft, nontender Extremities: Warm, well perfused. DP pulses 2+ b/l. No edema. B/l ankles wrapped/casted Skin: Intact. No rashes, bruises, or ulcers Neuro: Awake, fully oriented. Speech fluent - Assessment and Plan (1) Bilateral calcaneal fractures Current Visit: No Status: Acute - Summary of Assessment and Plan Summary of Assessment and Plan: Tiarra Waldron is a 48 F w hx morbid obesity s/p gastric bypass who p/w b/l ankle pain after a fall, found on XR to have b/l calcaneal fractures, underwent operative repair on 12/[address] Vega. Calcaneal fractures: s/p OR 12/[address] Vega - [facility] - PT/OT - pt has no insurance and therefore no SNF, SW will help to arrange homegoing equipment needs - Xarelto 10 daily x28 days or until pt regains mobility UTI: E coli, finished course of rocephin PPx: xarelto ppx FEN: regular, no MIVF Lines: PIV Consults: Podiatry Code: Full Dispo: Anticipate 1-2 days. Will likely be homegoing w home health/PT/OT Internal Medicine: Result - Labs CBC & Chem 7: 12/13/18 04:30 12/12/18 04:54 Labs: Short CBC 12/13/18 Range/Units 04:30 WBC 6.0 (4.3-11.1) K/mcL Hgb 9.5 L (11.5-15.4) g/dL Hct 29.5 L (35.3-44.9) % Plt Count 180 (140-400) K/mcL Neutrophils # 3.3 (1.6-8.9) K/mcL - Impressions Impressions Fluoroscopy 12/10/18 14:04 IMPRESSION: Intraprocedural fluoroscopic spot images as above. See separate procedure report for more information. D/ / 12/10/2018 16:09:30 Luisana Romero MD / kathy Interpreting Provider: Luisana Romero MD Foot X-Ray 12/10/18 14:04 IMPRESSION: Intraprocedural fluoroscopic spot images as above. See separate procedure report for more information. D/ / 12/10/2018 16:09:30 Luisana Romero MD / kathy Interpreting Provider: Luisana Romero MD Consult Discharge Plan - Plan Referrals: Sho Phillips CNP [Primary Care Provider] - (1) Bilateral calcaneal fractures Qualifiers: Encounter type: initial encounter Fracture type: closed Qualified Code(s): S92.001A - Unspecified fracture of right calcaneus, initial encounter for closed fracture; S92.002A - Unspecified fracture of left calcaneus, initial encounter for closed fracture
--- NOTE | 2018-12-13 15:26 | Podiatry Progress Note ---
Date of Encounter: 12/10/18 Time of Encounter: 14:30 - Assessment and Plan (1) Closed right calcaneal fracture Current Visit: Yes Status: Acute POD #3 right ORIF PLAN: Healing well at this time and without complication Dressing and splint to RLE CDI. Ice and elevate as needed for pain NWB to RLE as well as LLE Patient stable and healing without complication SW on board- patient does not have insurance and is unable to go to ECF. Await SW recommendations. Will need to follow up with in clinic 1 week after discharge Qualifiers: Encounter type: initial encounter Calcaneus location: body Fracture alignment: displaced Qualified Code(s): S92.011A - Displaced fracture of body of right calcaneus, initial encounter for closed fracture (2) Bilateral calcaneal fractures Current Visit: No Status: Acute Posterior splint intact to LLE- PLAN: Remain NWB to LLE Leave splint CDI Will plan to change and check skin on thursday Follow up with in clinic 1 week after discharge for continued care Qualifiers: Encounter type: initial encounter Fracture type: closed Qualified Code(s): S92.001A - Unspecified fracture of right calcaneus, initial encounter for closed fracture; S92.002A - Unspecified fracture of left calcaneus, initial encounter for closed fracture Subjective Interval history: POD #3 s/p ORIF right calcaneal fracture on 12/10 . Patient up to wheelchair with BLE elevated and posterior splints intact. States the posterior splints are hurting her legs but otherwise she is ok. Reports pain medication is making her nauseated and she is taking zofran and phenegran. Reports some relief. Denies any known fevers, chills, vomiting, calf pain or sob. Patient was pending ECF placement however she does not have insurance. Objective - Vital Signs Vital Signs: Vital Signs Temp Pulse Resp BP Pulse Ox 12/13/18 11:06 98.8 F 68 16 119/76 95 12/13/18 07:12 99.1 F 74 15 130/78 96 12/13/18 05:06 98.6 F 71 16 132/80 92 12/13/18 00:04 98.6 F 76 16 122/75 92 12/12/18 19:54 98.4 F 80 16 128/80 93 12/12/18 15:52 98.6 F 70 15 110/74 94 Intake and Output 12/12/18 12/13/18 12/13/18 23:59 07:59 15:59 Intake Total 240 / 1850 260 / 260 Output Total 300 / 300 Balance 240 / 1150 -300 / -40 260 / -40 Intake: IV Fluids / 20 Rocephin 1,000 MG In Water for 20 20 inj. (sterile) 20 ML @ 600 mls/ hr IVP Q24H ALISA Rx#:[id number] Oral 240 / 830 240 / 240 Output: Urine 300 / 300 Other: Meal Breakfast Percent of Meal Consumed 15% # Voids 1 350 Weight 93.4 kg Patient Weight 12/13/18 23:59 Weight 93.4 kg - Exam Exam: CONSTITUTIONAL: awake alert and oriented x3 VASCULAR: Dressing intact, cannot palpate for pulses. Toes warm, cap refill <3seconds. NEUROLOGICAL: intact sensation to light and moderate touch Post op- posterior splint to RLE CDI. Ice pack noted to calf. toes warm. movement of toes intact. Sensation intact. no calf pain or warmth with manual compression. No strikethrough drainage noted. - Lab Result Diagrams: 12/13/18 04:30 12/12/18 04:54 Labs: Abnormal lab results RBC 3.51 M/mcL (3.82-4.97) L 12/13/18 04:30 Hgb 9.5 g/dL (11.5-15.4) L 12/13/18 04:30 Hct 29.5 % (35.3-44.9) L 12/13/18 04:30 MCH 27.1 pg (28.0-33.3) L 12/13/18 04:30 MCHC 31.3 g/dL (31.6-35.5) L 12/10/18 01:26 9.2 K/mcL (1.6-8.9) H 12/11/18 04:40 Glucose 136 mg/dL (70-105) H 12/11/18 04:40 Calcium 8.1 mg/dL (8.6-10.3) L 12/12/18 04:54 Ur Specific [place] >= 1.030 (1.010-1.025) H 12/09/18 15:40 Moderate (Negative) H 12/09/18 15:40 Positive (Negative) A 12/09/18 15:40 Ur Leukocyte Esterase Moderate (Negative) H 12/09/18 15:40 5-15 per hpf (0-3) H 12/09/18 15:40 TNTC per hpf (0-3) H 12/09/18 15:40 Ur Squamous Epith Cells Many per lpf (None-Few) H 12/09/18 15:40 Many per hpf (None-Few) H 12/09/18 15:40 Ur Culture Indicated? YES (NO) A 12/09/18 15:40 Consult Discharge Plan - Plan Referrals: Sho Phillips, [place] [Primary Care Provider] -
[2018-12-14] MEDS: OXYCODONE Oral CONC 10 MG/0.5 ML ORAL.SYG SL PRN ×6 (02:08→23:23)
[2018-12-14] MEDS: *HR* Promethazine 25 MG/ML VIAL IVP PRN ×2 (04:17→10:13)
[2018-12-14] MEDS: cefTRIAXone 1,000 MG in Water for inj. (sterile) 20 ML 20 ML IVP SCH (08:12)
[2018-12-14] MEDS: Pantoprazole 40 MG VIAL IVP SCH (08:12)
[2018-12-14] MEDS ORDERED: *HR* Rivaroxaban 10 MG TABLET PO ONE (09:00)
--- NOTE | 2018-12-14 10:06 | Podiatry Progress Note ---
Date of Encounter: 12/14/18 Time of Encounter: 09:00 - Assessment and Plan (1) Closed right calcaneal fracture Current Visit: Yes Status: Acute POD #3 right ORIF PLAN: Healing well at this time and without complication Dressing and splint to RLE CDI. Ice and elevate as needed for pain NWB to RLE as well as LLE Patient stable and healing without complication SW on board- patient does not have insurance and plan is home with out of pocket pay for equipment. Will write for wheelchair, BSC, hospital bed and slide board for transfers. Patient would also likely benefit from [facility] visit a couple of times to teach equipment use. Discussed plan for home with patient Will plan for dressing change to posterior splint tomorrow prior to discharge and will need appointment made with 1 week following discharge NWB to BLE Will need prescription provided for pain medication, norco 5mg Q6H x5 days and Zofran Patient has no insurance is refuses to pay out of pocket cost for xarelto. Discussed risks. Order written for Aspirin 325 BID. Discussed with patient to take as ordered for DVT prevention. Discussed signs of blood clot and to call office or go to ED with concerns. Verbalized understanding. patient reports she does not smoke. Will need to call office with any fevers, chills, n/v or fls. Qualifiers: Encounter type: initial encounter Calcaneus location: body Fracture alignment: displaced Qualified Code(s): S92.011A - Displaced fracture of body of right calcaneus, initial encounter for closed fracture (2) Bilateral calcaneal fractures Current Visit: No Status: Acute Posterior splint intact to LLE- PLAN: Remain NWB to LLE Leave splint CDI Will plan to change and check skin on thursday Follow up with in clinic 1 week after discharge for continued care Qualifiers: Encounter type: initial encounter Fracture type: closed Qualified Code(s): S92.001A - Unspecified fracture of right calcaneus, initial encounter for closed fracture; S92.002A - Unspecified fracture of left calcaneus, initial encounter for closed fracture Subjective Interval history: POD #4 s/p ORIF right calcaneal fracture on 12/10 . Patient resting comfortably BLE elevated and posterior splints intact. States the posterior splints are hurting her legs but otherwise she is ok. Denies any known fevers, chills, vomiting, calf pain or sob. Spoke with Sw this morning. Patient to have another PT evaluation this evening and plans to out of pocket pay for [facility] a couple times a week and home equipment. Will go home when safe. Objective - Vital Signs Vital Signs: Vital Signs Temp Pulse Resp BP Pulse Ox 12/14/18 06:51 98.8 F 66 14 110/73 94 12/14/18 06:20 66 117/78 12/14/18 04:09 99.2 F 66 16 102/57 97 12/13/18 23:17 98.5 F 73 18 135/82 94 12/13/18 19:16 99.4 F 68 18 110/66 93 12/13/18 15:51 98.7 F 68 16 116/80 98 12/13/18 11:06 98.8 F 68 16 119/76 95 Intake and Output 12/13/18 12/14/18 12/14/18 23:59 07:59 15:59 Intake Total 610 / 870 0 / 0 Output Total 430 / 730 400 / 400 Balance 180 / 140 -400 / -400 Intake: Oral 610 / 850 0 / 0 Output: Urine 430 / 730 400 / 400 Other: # Voids 1 1 Weight 93.23 kg Patient Weight 12/14/18 23:59 Weight 93.23 kg - Exam Exam: CONSTITUTIONAL: awake alert and oriented x3 VASCULAR: Dressing intact, cannot palpate for pulses. Toes warm, cap refill <3seconds. NEUROLOGICAL: intact sensation to light and moderate touch Post op- posterior splint to RLE CDI. Ice pack noted to calf. toes warm. movement of toes intact. Sensation intact. no calf pain or warmth with manual compression. No strikethrough drainage noted. - Lab Result Diagrams: 12/13/18 04:30 12/12/18 04:54 Labs: Abnormal lab results RBC 3.51 M/mcL (3.82-4.97) L 12/13/18 04:30 Hgb 9.5 g/dL (11.5-15.4) L 12/13/18 04:30 Hct 29.5 % (35.3-44.9) L 12/13/18 04:30 MCH 27.1 pg (28.0-33.3) L 12/13/18 04:30 MCHC 31.3 g/dL (31.6-35.5) L 12/10/18 01:26 9.2 K/mcL (1.6-8.9) H 12/11/18 04:40 Glucose 136 mg/dL (70-105) H 12/11/18 04:40 Calcium 8.1 mg/dL (8.6-10.3) L 12/12/18 04:54 Ur Specific [place] >= 1.030 (1.010-1.025) H 12/09/18 15:40 Moderate (Negative) H 12/09/18 15:40 Positive (Negative) A 12/09/18 15:40 Ur Leukocyte Esterase Moderate (Negative) H 12/09/18 15:40 5-15 per hpf (0-3) H 12/09/18 15:40 TNTC per hpf (0-3) H 12/09/18 15:40 Ur Squamous Epith Cells Many per lpf (None-Few) H 12/09/18 15:40 Many per hpf (None-Few) H 12/09/18 15:40 Ur Culture Indicated? YES (NO) A 12/09/18 15:40 Consult Discharge Plan - Plan Referrals: Sho Phillips CNP [Primary Care Provider] - Prescriptions: Aspirin/Calcium Carbonate/Mag [Aspirin Buffered 325 mg Tab] 325 mg PO BID 30 Days #60 tablet HYDROcodone/Acet 5/325 mg [[place] 5-325 mg] 1 tab PO Q6H PRN 5 Days #20 tab PRN Reason: Pain Ondansetron HCl [Zofran] 4 mg PO Q8HR PRN 4 Days #12 tab PRN Reason: nausea
--- NOTE | 2018-12-14 11:48 | Internal Med Progress Note ---
Hospitalist Progress Note - Encounter Date of Encounter: 12/14/18 Time of Encounter: 11:47 - Subjective Interval History: No issues overnight. Pain is improving. Pt has no insurance and thus no SNF, and SW discussed needs with patient and she is figuring out how to manage at home (wheelchair, etc). No N/V/D, leg swelling, or SOB. - Exam Vitals: Temp Pulse Resp BP Pulse Ox 98.8 F 66 14 110/73 94 12/14/18 06:51 12/14/18 06:51 12/14/18 06:51 12/14/18 06:51 12/14/18 06:51 Exam: General: NAD, good eye contact, well appearing Thoracic: Normal breath sounds b/l, no wheezing or crackles Cardio: Normal S1 and S2, regular rate and rhythm Abdomen: Soft, nontender Extremities: Warm, well perfused. DP pulses 2+ b/l. No edema. B/l ankles wrapped/casted Skin: Intact. No rashes, bruises, or ulcers Neuro: Awake, fully oriented. Speech fluent - Assessment and Plan (1) Bilateral calcaneal fractures Current Visit: No Status: Acute - Summary of Assessment and Plan Summary of Assessment and Plan: Tiarra Waldron is a 48 F w hx morbid obesity s/p gastric bypass who p/w b/l ankle pain after a fall, found on XR to have b/l calcaneal fractures, underwent operative repair on 12/[address] Vega. Calcaneal fractures: s/p OR 12/[address] Vega - [facility] - PT/OT - pt has no insurance and therefore no SNF, SW will help to arrange homegoing equipment needs - ASA 325 daily x28 days - omeprazole 20 daily x28 days UTI: E coli, finished course of rocephin PPx: ASA FEN: regular, no MIVF Lines: PIV Consults: Podiatry Code: Full Dispo: Anticipate homegoing tomorrow w home health/PT/OT Internal Medicine: Result - Labs CBC & Chem 7: 12/13/18 04:30 12/12/18 04:54 Consult Discharge Plan - Plan Referrals: Sho Phillips CNP [Primary Care Provider] - Prescriptions: HYDROcodone/Acet 5/325 mg [[place] 5-325 mg] 1 tab PO Q6H PRN 5 Days #20 tab PRN Reason: Pain Rivaroxaban [Xarelto] 10 mg PO 1700 21 Days #21 tablet Ondansetron HCl [Zofran] 4 mg PO Q8HR PRN 4 Days #12 tab PRN Reason: nausea (1) Bilateral calcaneal fractures Qualifiers: Encounter type: initial encounter Fracture type: closed Qualified Code(s): S92.001A - Unspecified fracture of right calcaneus, initial encounter for closed fracture; S92.002A - Unspecified fracture of left calcaneus, initial encounter for closed fracture
[2018-12-14] MEDS ORDERED: Aspirin 325 MG TABLET PO SCH (12:00)
[2018-12-14] MEDS: Loratadine 10 MG TABLET PO SCH (18:16)
[2018-12-15] MEDS: OXYCODONE Oral CONC 10 MG/0.5 ML ORAL.SYG SL PRN ×4 (04:02→16:50)
--- NOTE | 2018-12-15 08:13 | Discharge Summary ---
- NOTES TO OUTPATIENT PROVIDER Notes to Outpatient Provider: B/l calcaneal fractures after a fall, discharged to podiatry follow up and is non-weight bearing for 1 month Date of Encounter: 12/15/18 Time of Encounter: 08:11 - Discharge Diagnosis (1) Bilateral calcaneal fractures Priority: Primary Status: Acute Qualifiers: Encounter type: initial encounter Fracture type: closed Qualified Code(s): S92.001A - Unspecified fracture of right calcaneus, initial encounter for closed fracture; S92.002A - Unspecified fracture of left calcaneus, initial encounter for closed fracture Hospital course: Dear Doctors, I recently had the opportunity to care for this patient during their recent hosp ital stay at [facility]. Tiarra Waldron is a 48 F w hx morbid obesity s/p gastric bypass who presented with b/l ankle pain after falling into her empty in-ground pool, found on XR to have b/l calcaneal fractures. Pt admitted and underwent operative repair on 12/[address] Vega. Plan for discharge complicated by pt's lack of health insurance and thus no option for SNF; pt is to remain non-weight bearing until cleared by podiatry likely in a month. SW/PT/OT consulted to assist with discharge equipment planning to include transfer board and wheelchair. Dx: bilateral closed calcaneal fractures Pertinent tests/consults: Podiatry consultation, Follow up: Podiatry 1 week Tests pending: none Med changes: - new ASA 325 bid x28d - omeprazole 20 daily x28d - new norco per podiatry - new miralax while on norco Mental status: awake, fully oriented Code status: Puppy Trainer spent on discharge: 25 minutes It has been my pleasure participating in this patient's care. Please contact me with any questions or concerns regarding their hospital stay. Sincerely, Mike Hodges MD - Discharge Medications Prescriptions: New HYDROcodone/Acet 5/325 mg [[place] 5-325 mg] 1 tab PO Q6H PRN 5 Days #20 tab PRN Reason: Pain Ondansetron HCl [Zofran] 4 mg PO Q8HR PRN 4 Days #12 tab PRN Reason: nausea Aspirin/Calcium Carbonate/Mag [Aspirin Buffered 325 mg Tab] 325 mg PO BID 30 Days #60 tablet Polyethylene Glycol 3350 [MiraLAX] 17 gm PO DAILY #30 powd.pack Home Medications: Aspirin/Calcium Carbonate/Mag [Aspirin Buffered 325 mg Tab] 325 mg PO BID 30 Days #60 tablet 12/14/18 [Rx] HYDROcodone/Acet 5/325 mg [[place] 5-325 mg] 1 tab PO Q6H PRN 5 Days #20 tab 12/14/18 [Rx] Ondansetron HCl [Zofran] 4 mg PO Q8HR PRN 4 Days #12 tab 12/14/18 [Rx] Polyethylene Glycol 3350 [MiraLAX] 17 gm PO DAILY #30 powd.pack 12/15/18 [Rx] Allergies/Adverse Reactions: Allergy/AdvReac Type Severity Reaction Status Date / Time Sulfa (Sulfonamide Allergy See Verified 12/09/18 16:52 Antibiotics) Comments Date of admission: 12/09/18 05:08 Primary care physician: Sho Phillips CNP Consults: 12/09/18 05:58 Consult to Podiatry [CONS] Routine Consulting Provider: Podiatry [facility] Reason for Consult: Bilateral calcaneal fractures, contacted from [place] [facility] Call Completed: Yes 12/10/18 16:52 Consult to Occupational Therapy [CONS] Routine Comment: Evaluate, develop and implement POC Reason for Consult: Bilat calcaneus fracture. help with transfers, rehab eval. Slide board training with therapy - assist to chair with therapy only. Does patient have active BEDREST order?: No Is patient medically & hemodynamically stable?: Yes Consult to Physical Therapy [CONS] Routine Comment: Evaluate, develop and implement POC Reason for Consult: Bilat calcaneus fracture, help with transfer, rehab eval. Slide board training with therapy - assist to chair with therapy only. Does patient have active BEDREST order?: No Is patient medically & hemodynamically stable?: Yes 12/10/18 16:54 Consult to Matching Machine Operator [CONS] Routine Reason for SW Consult: Home Health vs rehab - Constitutional Vitals: Temp Pulse Resp BP Pulse Ox 99.2 F 89 18 96/61 94 12/15/18 06:34 12/15/18 06:34 12/15/18 06:34 12/15/18 06:34 12/15/18 06:34 Exam: General: NAD, good eye contact, well appearing Thoracic: Normal breath sounds b/l, no wheezing or crackles Cardio: Normal S1 and S2, regular rate and rhythm Abdomen: Soft, nontender Extremities: Warm, well perfused. DP pulses 2+ b/l. No edema. B/l ankles wrapped/casted Skin: Intact. No rashes, bruises, or ulcers Neuro: Awake, fully oriented. Speech fluent - Patient Status Disposition: Home Health Service Condition: Fair Functional capacity at discharge: wheelchair bound Overall status at discharge: patient is progressing back to baseline - Ambulatory Orders Ambulatory Orders: Misc. Order2 Time Frame: 10 Years, Facility: [facility], Location: Home Health Services [facility] [place]. Order3 Time Frame: 10 Years, Facility: [facility], Location: Home Health Services - Discharge Instructions Follow Up With: Sho Phillips CNP [Primary Care Provider] - Jovanni Vega DPM [Partnered Physician] - (2 weeks) - Diet and Activity Activity: as per physical therapy (non-weight bearing, wheelchair only until cleared by podiatry) Diet: advance to your usual diet
[2018-12-15] MEDS: Loratadine 10 MG TABLET PO SCH (08:16)
[2018-12-15] MEDS ORDERED: Aspirin 325 MG TABLET PO SCH (09:00)
--- NOTE | 2018-12-15 09:42 | Podiatry Progress Note ---
Date of Encounter: 12/15/18 Time of Encounter: 09:00 - Assessment and Plan (1) Closed right calcaneal fracture Current Visit: Yes Status: Acute POD #3 right ORIF PLAN: Healing well at this time and without complication Dressing and splint to RLE CDI. Ice and elevate as needed for pain Bilateral splints removed at bedside for assessment Right ORIF incision line assessed and healing well without complication, Cleansed incision line with saline , pat dry, placed betadine to macerated incision line to promote drying, applied single layer of adaptic, 4x4, kerlix, cast padding, sock, posterior splint, cast padding and JANESSA wraps for compression. Left posterior splint removed for skin assessment. no skin breakdown or fracture blisters noted. Appears to be in proper alignment and patient denies pain. minimal edema. no ecchymosis noted. No appearance of any infection NWB to RLE as well as LLE Patient stable and healing without complication Plan for patient to go home today- has hospital bed arriving today and to help at home Patient would also likely benefit from [facility] visit a couple of times to teach equipment use. Discussed plan for home with patient Dressings to BLE to be left intact until seen in clinic Call with any trauma or saturation to dressings Prescriptions provided to caro and dre LEONARD reviewed- no active pr escriptions Patient has no insurance is refuses to pay out of pocket cost for xarelto. Discussed risks. Order written for Aspirin 325 BID. Discussed with patient to take as ordered for DVT prevention. Discussed signs of blood clot and to call office or go to ED with concerns. Verbalized understanding. patient reports she does not smoke. Will need to call office with any fevers, chills, n/v or fls. Please make appointment with in clinic in 2 weeks for suture removal. Please make appointment prior to discharge Qualifiers: Encounter type: initial encounter Calcaneus location: body Fracture alignment: displaced Qualified Code(s): S92.011A - Displaced fracture of body of right calcaneus, initial encounter for closed fracture (2) Bilateral calcaneal fractures Current Visit: No Status: Acute Posterior splint intact to LLE- PLAN: Remain NWB to LLE Leave splint CDI Will plan to change and check skin on thursday Follow up with in clinic 1 week after discharge for continued care Qualifiers: Encounter type: initial encounter Fracture type: closed Qualified Code(s): S92.001A - Unspecified fracture of right calcaneus, initial encounter for closed fracture; S92.002A - Unspecified fracture of left calcaneus, initial encounter for closed fracture Subjective Interval history: POD #5 s/p ORIF right calcaneal fracture on 6 . Patient resting com fortably BLE elevated and posterior splints intact. States the posterior splints are hurting her legs but otherwise she is ok. Denies any known fevers, chills, vomiting, calf pain or sob. Hospitalist at bedside, plan for patient to go home today. Patient states she will have a hospital bed at home later today. Will go home when safe. Objective - Vital Signs Vital Signs: Vital Signs Temp Pulse Resp BP Pulse Ox 12/15/18 08:15 69 106/69 12/15/18 06:34 99.2 F 89 18 96/61 94 12/14/18 22:45 97.9 F 75 17 118/69 99 12/14/18 18:44 98.1 F 86 16 135/68 100 12/14/18 15:41 98.7 F 66 16 115/66 93 Intake and Output 12/14/18 12/15/18 12/15/18 23:59 07:59 15:59 Intake Total 100 / 220 100 / 100 Output Total 550 / 1500 200 / 200 Balance -450 / -1280 -200 / -100 100 / -100 Intake: Oral 100 / 220 100 / 100 Output: Urine 550 / 1500 200 / 200 Other: Meal Breakfast Percent of Meal Consumed 10% # Voids 1 - Exam Exam: CONSTITUTIONAL: Awake alert and oriented VASCUAR: Pulses palpable dp/pt bilaterally. no calf pain to manual squeeze bilaterally. Cap refill <3 seconds. warm toes to tibia NEUROLOGICAL: Intact sensation to light and moderate touch s/p ORIF right, dressing removed and incision assessed, incision line well approximated, appears to be healing without complication. minimal surrounding edema. no erythema or warmth. no drainage. There was bloody strikethrough drainage noted to dressing when removed but no active bleed at this time. There is slight maceration along entire surgical line. - Lab Result Diagrams: 12/13/18 04:30 12/12/18 04:54 Labs: Abnormal lab results RBC 3.51 M/mcL (3.82-4.97) L 12/13/18 04:30 Hgb 9.5 g/dL (11.5-15.4) L 12/13/18 04:30 Hct 29.5 % (35.3-44.9) L 12/13/18 04:30 MCH 27.1 pg (28.0-33.3) L 12/13/18 04:30 MCHC 31.3 g/dL (31.6-35.5) L 12/10/18 01:26 9.2 K/mcL (1.6-8.9) H 12/11/18 04:40 Glucose 136 mg/dL (70-105) H 12/11/18 04:40 Calcium 8.1 mg/dL (8.6-10.3) L 12/12/18 04:54 Ur Specific [place] >= 1.030 (1.010-1.025) H 12/09/18 15:40 Moderate (Negative) H 12/09/18 15:40 Positive (Negative) A 12/09/18 15:40 Ur Leukocyte Esterase Moderate (Negative) H 12/09/18 15:40 5-15 per hpf (0-3) H 12/09/18 15:40 TNTC per hpf (0-3) H 12/09/18 15:40 Ur Squamous Epith Cells Many per lpf (None-Few) H 12/09/18 15:40 Many per hpf (None-Few) H 12/09/18 15:40 Ur Culture Indicated? YES (NO) A 12/09/18 15:40 Consult Discharge Plan - Plan Referrals: Sho Phillips CNP [Primary Care Provider] - Prescriptions: Aspirin/Calcium Carbonate/Mag [Aspirin Buffered 325 mg Tab] 325 mg PO BID 30 Days #60 tablet HYDROcodone/Acet 5/325 mg [[place] 5-325 mg] 1 tab PO Q6H PRN 5 Days #20 tab PRN Reason: Pain Ondansetron HCl [Zofran] 4 mg PO Q8HR PRN 4 Days #12 tab PRN Reason: nausea
--- NOTE | 2018-12-15 11:36 | Physician Discharge Referral ---
Home Health/Hosp Referral Info Transfer to: Home Health Provider in Charge Post Discharge: PCP - Diagnosis (1) Bilateral calcaneal fractures Priority: Primary Status: Acute - Respiratory Orders Smoking Cessation: Smoking cessation has been advised. For more information, call the [place] Tobacco Quit Line at 2-207-KNPW-NOW. - Diet/Nutrition Diet/Nutrition Orders: Regular - Activity Activity Orders: Chair (wheelchair, non-weight bearing) - Services Needed Following services are medically necessary services: Physical Therapy, Occupational Therapy - Transfer Medications Prescriptions: Aspirin/Calcium Carbonate/Mag [Aspirin Buffered 325 mg Tab] 325 mg PO BID 30 Days #60 tablet Polyethylene Glycol 3350 [MiraLAX] 17 gm PO DAILY #30 powd.pack HYDROcodone/Acet 5/325 mg [[place] 5-325 mg] 1 tab PO Q6H PRN 5 Days #20 tab PRN Reason: Pain Ondansetron HCl [Zofran] 4 mg PO Q8HR PRN 4 Days #12 tab PRN Reason: nausea Home Medications: Aspirin/Calcium Carbonate/Mag [Aspirin Buffered 325 mg Tab] 325 mg PO BID 30 Days #60 tablet 12/14/18 [Rx] HYDROcodone/Acet 5/325 mg [[place] 5-325 mg] 1 tab PO Q6H PRN 5 Days #20 tab 12/14/18 [Rx] Ondansetron HCl [Zofran] 4 mg PO Q8HR PRN 4 Days #12 tab 12/14/18 [Rx] Polyethylene Glycol 3350 [MiraLAX] 17 gm PO DAILY #30 powd.pack 12/15/18 [Rx] Allergies/Adverse Reactions: Allergy/AdvReac Type Severity Reaction Status Date / Time Sulfa (Sulfonamide Allergy See Verified 12/09/18 16:52 Antibiotics) Comments Certification: Further, I certify that my clinical findings support that this patient is homebound (i.e. absences from home require considerable and taxing effort and are for medical reasons or catholic services or infrequently or short duration when for other reasons) because: Homebound Reason: Leaving home requires considerable and taxing effort due to condition (pt unable to walk for 1 month) Attestation: My signature below is to certify that this patient is under my care and that I, or nurse practitioner, or a physician's it administrative assistant working with me, has a [id number] encounter with this patient.
[2018-12-15 20:18] VITALS: BP 124/74
== END 2018-12-15 20:44 | disposition home health service (06) ==
LOC: CDU → SUATTDRO 05:08 → 3NENU 18:09
PROVIDERS: ADMIT Internal Medicine; ATTEND Internal Medicine